=== PATIENT | female | born 1950 | race Caucasian/White ===

== ENCOUNTER → 2017-08-29 | Outpatient (CLI) | payer MEDICARE ==
[~2017-08-29] MED LIST: CITA20TA9 PO; TRAV0.00 OPB
== END | disposition home or self-care (01) ==
LOC: C.PATHSPEC 17:58
PROVIDERS: ATTEND Dermatology
DX: L57.0 Actinic keratosis (principal)

== ENCOUNTER 2022-11-14 06:53 | Observation (INO) ==
--- NOTE | 2022-10-24 14:55 | PAT Medication Instructions ---
Medication Instructions Date of Service October 24, 2022 Home Medications Medication Instructions Recorded tramadol 50 mg tablet 50 mg PO Q4H PRN pain #15 tabs 06/22/22 tramadol 50 mg tablet 50 mg PO Q8H PRN pain #30 tabs 07/29/22 Wheeled Walker #1 ea 09/09/22 tramadol 50 mg tablet 50 mg PO Q6H PRN pain #30 tabs 09/29/22 tramadol 50 mg tablet 50 mg PO Q4H PRN tramadol 50 mg tablet 50 mg PO Q8H PRN tramadol 50 mg tablet 50 mg PO Q6H PRN calcium 250 mg tablet 250 mg PO QAM cholecalciferol (vitamin D3) 50 mcg (2,000 unit) capsule (Vitamin D3) 50 mcg PO QAM duloxetine 60 mg capsule,delayed release 30 mg PO BID DO NOT take the morning of surgery calcium 250 mg tablet 250 mg PO QAM cholecalciferol (vitamin D3) 50 mcg (2,000 unit) capsule (Vitamin D3) 50 mcg PO QAM Take morning of surgery With a small sip of water, OTHERWISE NOTHING TO EAT OR DRINK AFTER MIDNIGHT: tramadol 50 mg tablet 50 mg PO Q4H PRN(if needed) tramadol 50 mg tablet 50 mg PO Q8H PRN(if needed) tramadol 50 mg tablet 50 mg PO Q6H PRN(if needed) duloxetine 60 mg capsule,delayed release 30 mg PO BID Take evening before surgery tramadol 50 mg tablet 50 mg PO Q4H PRN(if needed) tramadol 50 mg tablet 50 mg PO Q8H PRN(if needed) tramadol 50 mg tablet 50 mg PO Q6H PRN(if needed) duloxetine 60 mg capsule,delayed release 30 mg PO BID Other Notes If you have any questions please call us at [phone] or [phone] or [phone] or [phone]
--- NOTE | 2022-10-31 10:43 | Anesthesiology Consultation ---
Date of Service October 31, 2022 Assessment & Plan (1) Encounter for pre-operative examination: Chart Review Chart Review: Acceptable Risk for Surgery and Patient seen in Pre Admission Testing - Pt is not an ideal OPJ candidate due to low motivation Per PAT appt on 10/31/22, patient denies any recent travel or large group activities. Pt is vaccinated for Covid. Will leave to surgeon's discretion if preop Covid testing needed. Educated on importance of using Covid precautions one week prior to surgery Teaching & Discussion Pre-Anesthesia Teaching/Discussion Notes: Instructed NPO after midnight before surgery,except medications with 15 cc of water. Medication instructions provided according to the PAT guidelines. History Surgery Operation Date: 11/14/22 09:35 Proposed Procedures p Left Unicompartment Knee Arthroplasty versus Left Total Knee Arthroplasty - Philip Hannon, Height/Weight Height: 5 ft 6.5 in Weight: 60.1 kg Allergies Allergy/AdvReac Type Severity Reaction Status Date / Time pollen extracts Allergy Intermediate SNEEZING, Unverified 10/21/22 09:07 ETC No Known Drug Allergies Allergy Unknown Verified 10/21/22 09:07 dog dander Allergy congestion Verified 10/31/22 10:37 house dust Allergy congestion Verified 10/31/22 10:37 Medications Home Medications Medication Instructions Recorded Confirmed Last Taken tramadol 50 mg tablet 50 mg PO Q4H PRN pain #15 tabs 06/22/22 10/21/22 Unknown tramadol 50 mg tablet 50 mg PO Q8H PRN pain #30 tabs 07/29/22 10/21/22 Unknown Wheeled Walker #1 ea 09/09/22 09/09/22 Unknown tramadol 50 mg tablet 50 mg PO Q6H PRN pain #30 tabs 09/29/22 10/21/22 Unknown calcium 250 mg tablet 600 mg PO DAILY 10/21/22 10/31/22 Unknown cholecalciferol (vitamin D3) 50 50 mcg PO QAM 10/21/22 10/21/22 Unknown mcg (2,000 unit) capsule (Vitamin D3) duloxetine 60 mg capsule,delayed 30 mg PO BID 10/21/22 10/31/22 Unknown release acetaminophen 500 mg tablet 500 mg PO Q6H PRN Pain 10/31/22 10/31/22 Unknown ibuprofen 125 mg-acetaminophen 250 1 tab PO Q8H PRN Pain 10/31/22 10/31/22 Unknown mg tablet (Advil Dual Action) vit C 250 mg-vit E 90 mg-zinc 40 See Rx Instructions .Route .COMPLEX 10/31/22 10/31/22 Unknown mg-copper 1 [id number] capsule (PreserVision AREDS-2) Past Medical History Medical History Actinic keratosis Depression History of SCC (squamous cell carcinoma) of skin s/p excised (Mohs procedure x 4) Seasonal allergies resolved, no issues in years Seborrheic keratosis Sensorineural hearing loss (SNHL) of both ears Tremor occasional tremor right hand- seen by neuro - under observation Exercise / Class Metabolic Activity II 4-5 Yardwork/Stairs/Walk up hill (one flight of stairs - no chest pain or SOB ) Past Family History Family History Brother Hearing loss Other No family history of adverse response to anesthesia No family history of bleeding disorder Past Surgical History Surgical History History of cataract surgery B/L History of eyelid surgery B/L Hx of colonoscopy Status post Mohs surgery Past Anesthesia History No Hx of Anesthesia Complications and No Family Hx of Anesthesia Complications History of PONV No Hx of PONV and No Hx of Motion Sickness Social History Smoking Status: Former smoker tobacco type: cigarettes Do You Dip or Chew Tobacco: No Smoking End Date: quit >15 yrs ago (smoked x 25 years) Hx Alcohol Use: No Hx Substance Use: No substance use type: does not use Review of Systems Patient denies chest pain, shortness of breath, dyspnea on exertion, reflux, cough, wheezing, palpitations. No hx of seizures, stroke, CA, apnea/snoring. No hx of blood clots or blood transfusions Physical Exam Vital Signs VITALS BP 119/74 P 73 TEMP 98.0 SP02 99% RESP 16 Constitutional no acute distress ENMT Mouth: no TMJ clicking Thyromental Distance: > or= 3.5 Finger Breadths (4.0) Mallampati Class: III Permanent implants on the side Neck + limited neck extension (mild) Respiratory normal respiratory effort; no respiratory distress Auscultation: lungs clear to auscultation bilaterally; no wheezes Cardiovascular Rate/Rhythm: regular rate and regular rhythm Heart Sounds: no murmur Vessels: no carotid bruit Musculoskeletal Spine: no pain with cervical ROM Extremities: extremities normal to inspection Psychiatric Orientation: alert Lab Results Anesthesia Preop Results Results Anesthesia Widget: WBC 7.43 K/ul (4.8-10.8) 10/31/22 Hgb 12.8 g/dl (12.0-16.0) 10/31/22 Hct 37.8 % (37.0-47.0) 10/31/22 Plt 350 K/uL (130-400) 10/31/22 Na 140 mmol/L (136-145) 10/31/22 K 3.9 mmol/L (3.5-5.1) 10/31/22 Cl 105 mmol/L (98-107) 10/31/22 CO2 28 mmol/L (21-32) 10/31/22 BUN 17 mg/dl (6-23) 10/31/22 Creat 0.64 mg/dl (0.6-1.2) 10/31/22 Glucose Level 95 mg/dl (70-99(Fasting)) 10/31/22 PT 11.1 Seconds (9.0-12.0) 10/31/22 PTT 27.2 Seconds (21.0-31.0) 10/31/22 INR 1.0 (0.9-1.1) 10/31/22 Blood Type A Positive 10/31/22 Antibody Screen NEGATIVE 10/31/22 Testing Electrocardiogram Date: 10/31/22 Findings: + NSR @ (65bpm ) Cannot rule out inferior infarct, age undetermined Nonspecific ST abnormality (Discussed with Dr. Moreira- good functional status, no previous cardiac hx- patient can proceed as scheduled) Chest X-Ray Date: 10/31/22 Findings: + NAD COVID-19 Risk Screen Screening Information COVID-19 Screen Date: 10/31/22 Exposure 21 Days Family/Household +COVID Last 21 Days: No Exposure 10 Days Any COVID Exposure Last 10 Days: No Symptoms Last 10 Days Experienced COVID Sx Last 10 Days: No + COVID 0-90 Days COVID + in Last 0-90 Days: No Risk Plan COVID Risk Plan: No Risk Identified Patient Education COVID Preop Screening Education Complete: Yes
--- NOTE | 2022-11-10 15:34 | History & Physical Report ---
Date of Service November 10, 2022 Assessment & Plan (1) Left knee DJD: We will proceed with a left partial knee replacement surgery. Postoperatively she will be started on aspirin and kept overnight in the hospital for postop medical management. She plans to use energy physical therapy upon discharge. History of Present Illness Chief Complaint: Osteoarthritis of the left knee. Primary Care Provider: Barbara Aguila MD Isaura is a pleasant 72-year-old female who has been dealing with sudden increases of left knee pain. She went to the emergency room. Radiographs demonstrated a subcortical lesion of her distal medial femoral condyle. She was given some pain medications. She was given a knee brace. Fortunately, she is doing a little bit better. She is still having a lot of pain in her knee, but it is a little bit more manageable. She saw my partner and had an MRI of her knee, which showed some collapse of the medial femoral condyle. After failing conservative treatment, she has elected proceed with a left partial knee replacement surgery. Allergies Allergy/AdvReac Type Severity Reaction Status Date / Time pollen extracts Allergy Intermediate SNEEZING, Unverified 10/21/22 09:07 ETC No Known Drug Allergies Allergy Unknown Verified 10/21/22 09:07 dog dander Allergy congestion Verified 10/31/22 10:37 house dust Allergy congestion Verified 10/31/22 10:37 Home Medications Medication Instructions Recorded Confirmed Type tramadol 50 mg tablet 50 mg PO Q4H PRN pain #15 tabs 06/22/22 10/21/22 Rx tramadol 50 mg tablet 50 mg PO Q8H PRN pain #30 tabs 07/29/22 10/21/22 Rx Wheeled Walker #1 ea 09/09/22 09/09/22 Rx tramadol 50 mg tablet 50 mg PO Q6H PRN pain #30 tabs 09/29/22 10/21/22 Rx calcium 250 mg tablet 600 mg PO DAILY 10/21/22 10/31/22 History cholecalciferol (vitamin D3) 50 50 mcg PO QAM 10/21/22 10/21/22 History mcg (2,000 unit) capsule (Vitamin D3) duloxetine 60 mg capsule,delayed 30 mg PO BID 10/21/22 10/31/22 History release acetaminophen 500 mg tablet 500 mg PO Q6H PRN Pain 10/31/22 10/31/22 History ibuprofen 125 mg-acetaminophen 250 1 tab PO Q8H PRN Pain 10/31/22 10/31/22 History mg tablet (Advil Dual Action) vit C 250 mg-vit E 90 mg-zinc 40 See Rx Instructions .Route .COMPLEX 10/31/22 10/31/22 History mg-copper 1 [id number] capsule (PreserVision AREDS-2) Past Med/Surg History Medical History Actinic keratosis Depression History of SCC (squamous cell carcinoma) of skin s/p excised (Mohs procedure x 4) Seasonal allergies resolved, no issues in years Seborrheic keratosis Sensorineural hearing loss (SNHL) of both ears Tremor occasional tremor right hand- seen by neuro - under observation Surgical History History of cataract surgery B/L History of eyelid surgery B/L Hx of colonoscopy Status post Mohs surgery Family History Brother Hearing loss Other No family history of adverse response to anesthesia No family history of bleeding disorder Social History Smoking Status: Former smoker Tobacco Type: Cigarettes Second Hand Exposure: No; Do You Dip or Chew Tobacco: No; Hx Alcohol Use: No Hx Substance Use: No Preferred Language: Bulgarian Communication Ability: Effective Boat Hop Required: No Beliefs That Will Affect Care: None Current Living Situation: Alone Feels Safe at Home: Yes Assistive Devices: Brace/Splint/Immobilizer and Glasses Review of Systems All systems reviewed & are unremarkable except as noted in HPI & below. Physical Exam On physical examination of the left knee, she has range of motion of 0 to 120 degrees. No instability. Pain over the distal medial femoral condyle and over the medial joint line.. Constitutional WD/WN, vitals as above Eyes PERRL, conjunctivae normal, anicteric sclerae ENMT external ear and nose normal, oropharynx normal Neck trachea midline, no thyromegaly Respiratory normal respiratory effort, lungs clear to auscultation Cardiovascular RRR, no murmur, no edema Gastrointestinal (Abdomen) normal bowel sounds, soft, nontender, no hepatosplenomegaly Skin no rashes, warm and dry Psychiatric A+Ox3, euthymic affect Results & Data Results & Data Laboratory Results . Diagnostic Findings X-rays of the left knee do show signs of collapse along the medial compartment of the left knee. MRI of the left knee shows severe medial compartment arthritis. There is edema in the distal medial femoral condyle.. PG Care Time/CCT Total # of Minutes Spent Total Time Spent with Patient: Total time spent is greater than 50% in coordination of care (as documented) at patient's floor/unit and/or counseling patient: Coding Level of Care Code None Diagnoses Left knee DJD M17.12
[~2022-11-14 06:53] MED LIST changes: +ACETAMINOPHEN 500 MG TAB PO SCH; +BUPIVACAINE 0.5 % 5 MG/1 ML PF 10ML VIAL ONE; -CITA20TA9 PO; +FAMOTIDINE 20 MG TAB PO SCH; +GABAPENTIN 300 MG CAP PO SCH; +Ketorolac (*for OR use only*) 30 MG, dexAMETHasone 4 MG, KETAMINE HCL (**OR use only) 1... INFIL SCH; +LR 500ML BOLUS, THEN 15ML/HR IV SCH; +LR 60ML/HR IV SCH; +ROPIVACAINE 0.5% 5 MG/ML 30 ML VIAL ONE; +TRANEXAMIC ACID 1,000 MG **IV Intra-op IV SCH; +TRANEXAMIC ACID 1,000 MG **IV Pre-op IV SCH; -TRAV0.00 OPB; +ceFAZolin 2000MG 2,000 MG/15 ML SYR IV SCH; +dexAMETHasone 4 MG TAB PO SCH
[2022-11-14] MEDS ORDERED: KETAMINE 50 MG/5 ML SYRINGE ONE (08:07)
[2022-11-14] MEDS ORDERED: MIDAZOLAM HCL 1 MG/ML 2ML VIAL ONE (08:07)
--- NOTE | 2022-11-14 08:15 | History & Physical Bridge Note ---
Date of Service November 14, 2022 History & Physical Bridge Note I have examined the patient, reviewed the History & Physical and in the interval since the performance of the History & Physical I have noted the following changes of clinical significance: We will proceed with a left partial knee replacement versus total knee arthroplasty.
[2022-11-14] MEDS ORDERED: ORTHO JOINT ANESTHETIC ONE (09:21)
[2022-11-14] MEDS ORDERED: PROPOFOL IV EMULSION 10 MG/ML 20 ML VIAL IV ONE (09:47)
[2022-11-14] MEDS ORDERED: LIDOCAINE 2% 2 ML VIAL/AMP(20MG/ML) INFIL ONE (09:47)
[2022-11-14] MEDS ORDERED: ONDANSETRON INJ 2 MG/ML 2 ML VIAL ONE (09:47)
--- NOTE | 2022-11-14 10:54 | Operative Report ---
PG Post Operative Report Pre & Post Diagnosis Operation Date: 11/14/22 09:00 Pre-Op Diagnosis: Left Knee Degenerative Joint Disease Post-Op Diagnosis: Left Knee Degenerative Joint Disease I identified the patient and participated in the time-out.: Yes Procedure Operation Date: 11/14/22 09:00 Actual Procedures p Left Unicompartment Knee Arthroplasty(Left) - Philip Hannon DO Surgeon Philip Hannon DO Passenger Car Inspector Philip Garcia, PSA Estimated Blood Loss 20 Findings Consistent with Post-Op Diagnosis Specimens Left femoral tibial bone Description of Procedure Implants used: I used a Michelle [employer] persona partial knee replacement system with a size 4 femur, a size E tibia, and a size 9 polyethylene insert. On November 12 2022 Isaura arrived at [facility] for the above procedure. She was seen in the preop holding area and the operative extremity identified and signed. She given a preoperative antibiotic and a spinal an esthetic. She was taken back the operating laid on table in supine position. She was given basic sedation. The left knee was prepped and draped in sterile fashion. A timeout was done. The patient and the operative extremity was properly identified. A midline incision was made just medial to the patella. Dissection was taken down through the fascia. A small mid vastus arthrotomy was used. A small portion of the fat pad was excised. A little bit of the medial retinaculum was released. The knee was then flexed. There was grade 4 chondral changes throughout the distal medial femoral condyles. There is a little bit of grade 1 and grade 2 chondral changes on the medial aspect of the lateral condyle. The patellofemoral joint looks fine and the ACL was intact. Decision was made to c ontinue with the partial knee replacement. An external tibial guide was placed. 4 mm was resected off the medial tibial plateau. The meniscus was then removed. The knee was brought into full extension and the distal femur was resected. The knee was then flexed. The distal femur measured to be a size 4. The size 4 cutting block was then pinned in place. 2 drill holes were made followed by a chamfer cut and the posterior cut. The tibia was then exposed. The tibia measured to be a size E. The tibial cut guide was then impacted in the place. 2 peg holes were drilled anteriorly. The trial size 4 femur was then impacted into place. A size 9 mm polyethylene trial was then snapped into place. The knee was brought through full range of motion and felt to be stable. All trial components were then removed. The final components were then cemented in place with Biomet cement. Once cement had hardened the size 9 polyethylene insert was snapped into place. The knee was brought through full range of motion and felt to be stable. The surrounding soft tissues were injected with 60 cc of an orthopedic pain control cocktail. The wound was then irrigated and hemostasis was obtained. The arthrotomy was closed with #1 Vicryl suture. Skin was closed with 2-0 Vicryl, 3 oh V-Loc suture, and holger. She was placed in a soft dressing. She was then taken to the postanesthesia care unit in stable condition. She tolerated the procedure well. Philip Garcia PA-C, was present for the entire procedure. He was critical for patient positioning, prepping, draping, retraction exposure, wound closure and application of sterile dressing. I attest to the content of the Intraoperative Record and any orders documented therein. Any exceptions are noted below.
--- NOTE | 2022-11-14 12:48 | Anesthesiology Progress Note ---
Date of Service November 14, 2022 Anesthesia Post Procedure Vital Signs Vital Signs: Temp Pulse Resp BP BP Pulse Ox O2 Del Method 11/14/22 12:40 56 L 18 136/63 98 Room Air 11/14/22 12:30 56 L 12 131/62 99 Room Air 11/14/22 12:20 61 12 137/67 98 Room Air 11/14/22 12:10 58 L 15 144/62 H 99 Room Air 11/14/22 11:50 58 L 21 132/63 97 Room Air 11/14/22 12:00 53 L 15 145/62 H 99 Room Air 11/14/22 11:40 60 17 136/64 97 Room Air 11/14/22 11:30 60 18 131/63 98 Room Air 11/14/22 11:20 56 L 16 138/61 97 Room Air 11/14/22 11:10 59 L 14 137/60 99 Room Air 11/14/22 11:02 97.0 F L 69 16 132/69 96 Room Air 11/14/22 07:36 98.6 F 62 20 126/66 99 Room Air Pain Intensity Left Knee: Pain Intensity: 0 Transfer of Care Handoff Completed per policy Notes Mental Status: alert / awake / arousable and participated in evaluation Patient Amnestic to Procedure: Yes Nausea / Vomiting: adequately controlled Pain: adequately controlled Airway Patency, RR, SpO2: stable & adequate BP & HR: stable & adequate Hydration State: stable & adequate Neuraxial Anesthesia: was administered and sensory block is resolving Anesthetic Complications: no major complications apparent and Pt Satisfied with anesthetic care
[2022-11-14] MEDS ORDERED: MAGNESIUM HYDROXIDE SUSP 30 ML UDC PO PRN (13:32)
[2022-11-14] MEDS ORDERED: NALOXONE HCL 0.4 MG/1 ML VIAL/CARP IV PRN (13:32)
[2022-11-14] MEDS ORDERED: bisacodyL 10 MG SUPP PR PRN (13:32)
[2022-11-14] MEDS ORDERED: oxyCODONE HCL IR 5 MG TAB (IMMEDIATE RELEASE) PO PRN (13:32)
[2022-11-14] MEDS ORDERED: METOCLOPRAMIDE HCL INJ 5 MG/ML 2 ML VIAL IV PRN (13:32)
[2022-11-14] MEDS ORDERED: ONDANSETRON INJ 2 MG/ML 2 ML VIAL IV PRN (13:32)
[2022-11-14] MEDS ORDERED: HYDROmorphone INJ 0.5 MG/0.5 ML SYR IV PRN (13:32)
[2022-11-14] MEDS: SODIUM CHLORIDE 0.9% 1000ML 1,000 ML IV SCH ×2 (13:45→23:53)
[2022-11-14] MEDS: ACETAMINOPHEN 500 MG TAB PO SCH ×2 (14:27→21:27)
[2022-11-14] MEDS: KETOROLAC TROMETHAMINE 15 MG/ML VIAL IV SCH ×2 (14:27→19:39)
--- NOTE | 2022-11-14 15:00 | XRay Report ---
XR knee LT 1 or 2V routine CLINICAL HISTORY: Postoperative evaluation. COMPARISON: Knee radiographs September 09, 2022. FINDINGS: Alignment of the medial compartment left knee arthroplasty is anatomic. There is no peripr osthetic fracture. There are no unexpected radiopaque foreign bodies. There are skin holger. IMPRESSION: Expected findings following medial compartment left knee arthroplasty. ACT 112: Negative or not required by law. Electronically signed by: Zaki Lucia M.D. 11/14/2022 2:58 PM
[2022-11-14] MEDS: ceFAZolin 2000MG 2,000 MG/15 ML SYR IV SCH (16:29)
[2022-11-14] MEDS: DULoxetine HCL 30 MG CAP PO SCH (19:41)
[2022-11-14] MEDS: ASPIRIN 81 MG ECTAB PO SCH (19:41)
[2022-11-14] MEDS: DOCUSATE SODIUM 100 MG CAP PO SCH (19:41)
[2022-11-14] MEDS ORDERED: SENNA 8.6 MG TAB PO SCH (21:00)
[2022-11-15] MEDS: KETOROLAC TROMETHAMINE 15 MG/ML VIAL IV SCH ×2 (01:35→08:31)
[2022-11-15] MEDS: ceFAZolin 2000MG 2,000 MG/15 ML SYR IV SCH (01:35)
[2022-11-15] MEDS: ACETAMINOPHEN 500 MG TAB PO SCH (06:11)
--- NOTE | 2022-11-15 07:35 | Orthopedic Progress Note ---
Date of Service November 15, 2022 Assessment & Plan (1) Status post left partial knee replacement: Overall she is doing very well. She is not having much pain in the left knee. She will be seen by physical therapy today for ambulation and range of motion exercises. She is on aspirin for DVT prophylaxis. She can be discharged home later today. She will follow-up with orthopedics in 2 weeks. Hernando Delarosa was seen and examined at bedside this morning. Overall she is doing very well. She is not having much pain in the left knee. She has not been up out of bed yet. She has no complaints.. Review of Systems All systems reviewed & are unremarkable except as noted in HPI & below. Physical Exam On physical examination the left knee, the dressing is clean and dry. Her leg is out full extension. She has active dorsiflexion plantarflexion of her left ankle.. Results & Data Results & Data Laboratory Results . Diagnostic Findings Postoperative x-rays of the left knee show the prosthesis to be in anatomic alignment without any evidence of fracture, dislocation, or loosening.. PG Care Time/CCT Total # of Minutes Spent Total Time Spent with Patient: Total time spent is greater than 50% in coordination of care (as documented) at patient's floor/unit and/or counseling patient: Coding Level of Care Code 63329 Post Operative Follow-Up Diagnoses Status post left partial knee replacement Z96.652
--- NOTE | 2022-11-15 07:36 | Discharge Summary ---
Date of Service November 15, 2022 Admission HPI (Per Admitting) Isaura is a pleasant 72-year-old female who has been dealing with sudden increases of left knee pain. She went to the emergency room. Radiographs demonstrated a subcortical lesion of her distal medial femoral condyle. She was given some pain medications. She was given a knee brace. Fortunately, she is doing a little bit better. She is still having a lot of pain in her knee, but it is a little bit more manageable. She saw my partner and had an MRI of her knee, which showed some collapse of the medial femoral condyle. After failing conservative treatment, she has elected proceed with a left partial knee replacement surgery. Admission Exam (Per Admitting) On physical examination of the left knee, she has range of motion of 0 to 120 degrees. No instability. Pain over the distal medial femoral condyle and over the medial joint line.. Principal Diagnosis Same as "Discharge Diagnosis" noted below under Discharge Instructions. Discharge Exam On physical examination the left knee, the dressing is clean and dry. Her leg is out full extension. She has active dorsiflexion plantarflexion of her left ankle.. Discharge Data Procedures Performed Operation Date: 11/14/22 09:00 Actual Procedures p Left Unicompartment Knee Arthroplasty(Left) - Philip Hannon DO Ordered Studies 11/14/22 05:00 US - OR guided needle placemen Routine Hospital Course (1) Status post left partial knee replacement: On November 14, 2022 Isaura arrived at [facility] and underwent a left partial knee replaced without complication. She had a spinal anesthetic. Postoperatively she was started on aspirin for DVT prophylaxis and transferred to the general orthopedic floors. Her hospital course was uneventful. On postop day #1, her vital signs were stable and her pain was well controlled. She was able to participate well with physical therapy doing ambulation and range of motion exercises. She was then discharged home. She will follow-up with orthopedics in 2 weeks. PG Care Time/CCT Total # of Minutes Spent Total Time Spent with Patient: Total time spent is greater than 50% in coordination of care (as documented) at patient's floor/unit and/or counseling patient: Discharge Plan Discharge Items Patient Disposition: Home - Home Health Services Reason For Visit: Left Knee Degenerative Joint Disease Discharge Diagnosis: Left knee replacement Activity: As commented below Non-emergency contact: Surgeon Call non-emergency contact if: your wound has increased redness and your wound has increased drainage Follow-up/Referrals: Barbara Aguila MD [Primary Care Provider] - Diet: Regular Addtl Attending Provider Instructions: Activity and Therapy Recommendations: * If you are using [facility] then therapy will be provided at your home until they feel you have accomplished all of your goals. * If you are using [facility] then Physical Therapy will be provided until they feel you are ready to start Outpatient Physical Therapy. * If you are not using home therapy then Outpatient Physical Therapy should start about 3-5 days from your day of surgery. Therapy will last about 6-10 weeks * It is important not to put a pillow under your knee when you are relaxing or sleeping. It is just as important to make sure you are getting your knee perfectly straight as it is to regain your knee bend. * You were shown a series of exercises in the hospital. Do these exercises three times each day including the exercises you were shown in physical therapy. * Get up and walk several times each day. For the first four weeks, try not to stand or walk for more than one hour at a time. If you do stand or walk for more than one hour, you will not hurt anything, but your leg will likely swell. * As you feel comfortable, you may change from the walker or crutches to a cane and then to independent walking. Medications: * Narcotic You will likely be sent home from the hospital with a prescription for the narcotic pain medication that worked best throughout your stay. * Aspirin Most patients will be required to take Aspirin 81mg twice a day for 6 weeks after surgery. This is obtained [id number] and a prescription is not necessary. * Other medications may be prescribed for specific circumstances. If you have any questions, please call the office at . * Resume previous home medications unless otherwise instructed TEDs/Elastic Stockings: The white elastic stockings help limit swelling and prevent blood clots from forming in your legs.~ The more you wear them, the more they work. Wear them for six weeks. Dressing Care: The dressing can be changed after physical therapy on postop day #1. Daily dry dressing changes for a few days, especially if the incision is still draining some. If the incision is not draining then you may leave the holger open to air. If there is a little bit of drainage or if the holger are getting stuck on your clothing then cover the incision with a dry dressing. The holger will be removed at your 2 week follow-up appointment. Showering: You may shower 5 days from the day of surgery as long as the incision is no longer draining. You may shower with the holger exposed. Let soapy water run over the holger and pat them dry. Do not scrub or soak the incision. Things To Watch For: * Drainage from the incision site that occurs more than one week after your surgery. * Increased redness at the incision site. * Fever above 102 degrees Fahrenheit. * Unusual chest pain or shortness of breath. * Call [facility] at with any of the above problems Follow-Up Visit: Follow-up with Dr. Hannon's PA (Philip Garcia) 2-3 weeks after your day of surgery. He will remove your holger and answer any questions. If you have any additional questions or concerns, Dr Hannon is usually in the office at the same time and will be available An appointment was probably scheduled when you signed-up for surgery in the office. If you have any questions call Office Instructions: More detailed instructions as well as Frequently Asked Questions were provided in a folder by our office when you signed-up for surgery. Please review these instructions when you get home. If you have any further questions or concerns, please feel free to call the office at [phone] Pending Studies at Discharge: No Stand-Alone Forms: My [facility] Medications and DC Order Prescriptions: New aspirin 81 mg Tablet,Delayed Release (Dr/Ec) 81 mg PO BID 42 Days Qty: 84 0RF Continued (DME) Wheeled Walker Misc See Rx Instructions .Route Qty: 1 0RF Rx Instructions: As directed calcium 250 mg Tablet 600 mg PO DAILY Rx Instructions: 1-2 tablets daily duloxetine [Cymbalta] 60 mg Capsule,Delayed Release(Dr/Ec) 30 mg PO BID cholecalciferol (vitamin D3) [Vitamin D3] 50 mcg (2,000 unit) Capsule 50 mcg PO QAM acetaminophen 500 mg Tablet 500 mg PO Q6H PRN (Reason: Pain) PreserVision AREDS-2 250-90-40-1 mg Capsule See Rx Instructions .ROUTE .COMPLEX Rx Instructions: 1-2 tablets daily Advil Dual Action 125-250 mg Tablet 1 tab PO Q8H PRN (Reason: Pain) tramadol 50 mg tablet 50 mg PO Q6H PRN (Reason: pain) Qty: 30 0RF Admission Data Admit Date/Time: 11/14/22 11:05 Attending Provider: Philip Hannon Admit Provider: Philip Hannon Primary Care Provider: Barbara Aguila
[2022-11-15] MEDS ORDERED: dexAMETHasone 4 MG TAB PO SCH (08:00)
[2022-11-15] MEDS: DOCUSATE SODIUM 100 MG CAP PO SCH (08:31)
[2022-11-15] MEDS: DULoxetine HCL 30 MG CAP PO SCH (08:31)
[2022-11-15] MEDS: ASPIRIN 81 MG ECTAB PO SCH (08:31)
[2022-11-15] MEDS ORDERED: MULTIVITAMIN TAB PO SCH (09:00)
== END 2022-11-15 11:53 | disposition home health service (06) ==
LOC: ASU 06:53 → 3E 06:53